=== PATIENT | female | born 1955 | race Caucasian/White ===

== ENCOUNTER 2018-01-17 07:32 | Observation (INO) | payer BC ==
[2018-01-17] MEDS ORDERED: Lidocaine 1% INJ* 10 MG/ML 30 ML SDV ONE (08:39)
[2018-01-17] MEDS ORDERED: ceFAZolin VIAL 1 GM in NS *SYRINGE * * 10 ML ONE (09:00)
[2018-01-17] MEDS ORDERED: ceFAZolin* 2 GM* ONE DOSE (Duplex) IVPB (09:00)
[2018-01-17] MEDS ORDERED: Midazolam* 1 MG/ML 5 ML VIAL (5 MG) ONE (09:06)
[2018-01-17] MEDS ORDERED: fentaNYL* 50 MCG/ML 2 ML VIAL (100 MCG VIAL) ONE (09:06)
[2018-01-17] MEDS: oxyCODONE/Acetamin 5/325 MG* TAB PO PRN (12:28)
[2018-01-17] MEDS: Acetaminophen TAB* 325 MG PO PRN (14:07)
[2018-01-17] MEDS: ceFAZolin 1 GM VIAL(*) 1 GM in NS 0.9% 50 ML* 50 ML IVPB SCH (16:41)
[2018-01-17] MEDS ORDERED: Zolpidem TAB* 10 MG PO PRN (16:46)
[2018-01-17] MEDS: Calcium Carbonate CHEW TAB* 500 MG (TUMS) PO PRN ×2 (17:25→22:25)
[2018-01-17] MEDS: Mometasone/Formoter 100/5 MDI INH SCH (20:15)
[2018-01-17] MEDS: Carvedilol TAB* 6.25 MG PO SCH (21:26)
[2018-01-17] MEDS ORDERED: Sertraline* 50 MG TAB PO SCH (22:00)
[2018-01-17] MEDS ORDERED: Lisinopril TAB* 5 MG PO SCH (22:00)
[2018-01-17] MEDS ORDERED: Atorvastatin* 80 MG TAB PO SCH (22:00)
[2018-01-17] MEDS ORDERED: Ezetimibe TAB* 10 MG PO SCH (22:00)
[2018-01-18] MEDS: ceFAZolin 1 GM VIAL(*) 1 GM in NS 0.9% 50 ML* 50 ML IVPB SCH ×2 (01:09→09:37)
[2018-01-18] MEDS: Acetaminophen TAB* 325 MG PO PRN (01:56)
[2018-01-18] MEDS: oxyCODONE/Acetamin 5/325 MG* TAB PO PRN (01:57)
[2018-01-18] MEDS: Mometasone/Formoter 100/5 MDI INH SCH (08:17)
[2018-01-18] MEDS: Carvedilol TAB* 6.25 MG PO SCH (09:36)
[2018-01-18 11:46] VITALS: BP 104/56
--- NOTE | 2018-01-18 16:15 | OP ---
OPERATIVE REPORT: DATE OF OPERATION: 01/17/18 DATE OF : 59 SURGEON: Florencio Topete MD ANESTHESIA: Local anesthesia with conscious sedation. PRE-OP DIAGNOSIS: Ischemic cardiomyopathy. POST-OP DIAGNOSIS: Ischemic cardiomyopathy. OPERATIVE PROCEDURE: Single chamber ICD implantation. ESTIMATED BLOOD LOSS: Nil. COMPLICATIONS: None. INDICATION: The patient is a 62-year-old female with a history of coronary artery disease, history o f ischemic cardiomyopathy, ejection fraction less than 35%. The patient was recommended for ICD impl antation for prevention of sudden cardiac from cardiac arrhythmias. DESCRIPTION OF PROCEDURE: The patient was brought to the procedure room in a fasting state. Informe d consent had been obtained prior to the procedure. All labs had been reviewed. The patient was mahnaz veronica supine on the procedure table. Her left deltopectoral area was cleaned and draped in the usual f ashion. 1% lidocaine was used for local anesthesia. Under ultrasound guidance, the axillary vein wa s entered by a modified Seldinger technique and a guidewire was placed. A 3.5 cm incision was made i n the pectoral area. Blunt dissection was carried down to the pectoral fascia. A pocket was fashion ed for the ICD. Over the guidewire, a 9- Russian sheath introducer was placed through which a right v entricular ICD lead was advanced the RV apex. The right ventricular lead is a Medtronic, model 6935, serial number [id number]. It had an R-wave sensitivity of 17, impedance 900 ohms, threshold 1 volt at 0.5 milliseconds. The ventricular lead was sutured to the pectoral fascia. The pocket was flushe d. A generator was attached to the ventricular lead. The generator is a Medtronic, model [id number], s erial number [id number]. The device was placed in the pocket. The surgical incision was closed in 3 layers. The patient tolerated the procedure well with no complications. [id number]/[facility] #: [id number]
--- NOTE | 2018-01-19 00:34 | DS ---
AMENDED REPORT NOW INCLUDES DESIGNATED COSIGNER CC: Dr. Shira Quevedo * DISCHARGE SUMMARY: DATE OF ADMISSION: 01/17/18 DATE OF DISCHARGE: Tentative date of discharge pending no complications, . DICTATING FOR: Dr. Florencio Topete, Cardiology.* (DICTATED BY LULU HOANG NP) PRIMARY DIAL POLISHER: Dr. Martell. PRIMARY CARE PHYSICIAN: Dr. Shira Quevedo. ADMITTING DIAGNOSES: 1. Ischemic cardiomyopathy, here for ICD implantation, left ventricular ejection fraction 30% to 35% on echocardiogram from 10/12/16 despite medical therapy. 2. History of coronary artery disease with remote history of large anterior wall myocardial infarction. 3. History of hypertension, on lisinopril 5 mg p.o. daily in addition to carvedilol therapy. 4. History of dyslipidemia, on Repatha therapy. DISCHARGE DIAGNOSES: 1. Ischemic cardiomyopathy with left ventricular ejection ejection fraction 30 % to 35% despite medical therapy, status post ICD implantation by Dr. Florencio Topete on 01/17/18. The patient had post implant device check this morning, which did not reveal any arrhythmias or ventricular tachycardia. Subsequently, she is to be discharged home on oral Keflex therapy pending chest x-ray is negative for pneumothorax. She is to follow up with Mily Guerrero NP on at 8:50 in the morning. She is to follow up with device clinic on 02/17/18 at 3 p.m. the patient was given instructions for wound maintenance in addition to restrictions involving left upper extremity. 2. History of coronary artery disease. Denies chest pain, on aspirin, Repatha , and beta-blockade therapy. 3. History of hypertension. Blood pressure 112/56. Continue KIRSTEN inhibitor and carvedilol therapy. 4. Dyslipidemia, on Repatha therapy. Goal LDL of less than 70 given above #2. PROCEDURES PERFORMED: The patient had an ICD implanted on 01/17/[address] Florencio Topete due to history of ischemic cardiomyopathy with severe LV dysfunction. For further information, please review his procedure report. Postprocedure, there have been no complications. She had a normal device check this morning, 01/18/18. She received 3 doses of IV cefazolin, last dose this morning at 9:14 a.m. She is to be discharged home on oral Keflex therapy. She is to follow up with Mily Guerrero NP, 01/25/18 and the device clinic on . COMPLICATIONS: None thus far. COURSE OF HOSPITAL STAY: This is a pleasant 62-year-old female patient, who follows Dr. Martell by practice. She has a history of coronary artery disease with old anterior wall WI with severe ischemic cardiomyopathy, hypertension, hyperlipidemia despite medical therapy. Last echocardiogram was 06/12/16. At that time, LVEF was 30% to 35%. Subsequently, she presented for elective defibrillator implantation by Dr. Florencio Topete on 01/17/18. She underwent ICD implantation with no complications thus far. She was prophylactically given 3 doses of IV cefazolin and is to be discharged home on oral Keflex therapy. Telemetry was reviewed, rare PVCs and couplets. No evidence of VT. Device was interrogated this morning. There was no AFib or ventricular tachycardia. Normal ICD test results. No changes were made. Postprocedure chest x-ray to rule out pneumothorax is pending. She offers no complaints. She has been ambulating to the bathroom with no problems. Denies shortness of breath, chest pain, palpitations, dizziness, syncope, or edema. Pending chest x-ray results, tentative discharge is later today. DISCHARGE DIET: Low cholesterol, low fat, sodium restriction given severe LV dysfunction. No driving until further directed in followup. Lifting restrictions. The patient was instructed not to lift left arm above shoulder for 2 weeks and not to lift the left arm above head for 8 weeks. She is to use arm sling as directed, which she has been compliant with. She is to not lift more than 10 pounds for 2 weeks. She is to not lift more than 15 pounds for 8 weeks. She was instructed to keep incision clean and dry for 2 weeks. Followup for work will be discussed at followup on 01/25/18. She is employed as a teacher. DISCHARGE MEDICATIONS: Include: 1. Sertraline HCl 50 mg tablet 1 tablet p.o. daily. 2. Zetia 10 mg p.o. daily. 3. Carvedilol 6.25 mg b.i.d. 4. Advair 100/50 mcg/dose inhaled 1 puff by mouth b.i.d. 5. Metformin 500 mg tablet daily with dinner. 6. Ventolin HFA (90 base) mcg/ACT inhaled 1 to 2 puffs p.o. 4 times a day p.r.n. 7. Aspirin 81 mg p.o. daily. 8. Calcium 500 mg tablet 2 tablets p.o. daily as needed. 9. Rosuvastatin 40 mg p.o. daily. 10. Lisinopril 5 mg daily. 11. Repatha 140 mg/mL twice a month. 12. Keflex as directed. Pending no complications, the patient is to be discharged later today. We will await chest x-ray to ensure no evidence of pneumothorax. Device check this morning was normal with no evidence of arrhythmias. Dr. Florencio Topete agrees the above assessment and plan. TIME SPENT: Total time spent on discharge 30 minutes. LULU HOANG NP [id number]/[facility] #: [id number] CINDY
== END 2018-01-18 13:10 | disposition home or self-care (01) ==
LOC: CHICATH 07:32 → MEDTELE 10:00
PROVIDERS: ADMIT Specialist; ATTEND Specialist
DX: I11.9 Hypertensive heart disease without heart failure (principal); I43 Cardiomyopathy in diseases classified elsewhere; I25.10 Atherosclerotic heart disease of native coronary artery without angina pectoris; I25.2 Old myocardial infarction; E78.5 Hyperlipidemia, unspecified; Z79.899 Other long term (current) drug therapy; Z79.82 Long term (current) use of aspirin; Z95.1 Presence of aortocoronary bypass graft; Z95.810 Presence of automatic (implantable) cardiac defibrillator
CPT/HCPCS: 33249; 71045; 90471; 90472; 90686; 94640; 96374; 96375; 96376; 99156; 99157; A9270-GY; C1722; C1895; G0008; G0378; J0690; J2250; J3010